=== PATIENT | male | born 1960 | race Caucasian/White ===

== ENCOUNTER 2021-08-02 15:56 | Emergency (ER) | payer OTHER ==
[~2021-08-02] VITALS: Ht 177.8 cm; Wt 77.1 kg
--- NOTE | 2021-08-02 16:00 | NUR ---
BIBAKANKSHA FROM [facility] C/O GEN RASH AND ITCHINESS STARTED X 2 DAYS. THE PATIENT IS IN ROOM AIR AND DENIES SOB. RESPIRATION REGULAR AND UNLABORED. WILL CONTINUE TO MONITOR THE PATIENT.
--- NOTE | 2021-08-02 16:40 | NUR ---
SEEN BY DOUBLE CUT SAWYER CATH AT BEDSIDE.
--- NOTE | 2021-08-02 16:48 | NUR ---
[facility] AT BEDSIDE
[2021-08-02 17:10] LABS: BASOPHILS % (AUTO) 0.3 % (0.0-2.0); EOSINOPHILS % (AUTO) 4.9 % (0.0-6.0); HEMATOCRIT 39 % (39-51); HEMOGLOBIN 12.8 g/dL (13.5-17.5); LYMPHOCYTES # (AUTO) 0.9 K/uL (0.8-4.8); LYMPHOCYTES % (AUTO) 16.5 % (20.0-44.0); MEAN CORPUSCULAR HGB CONC 33 g/dl (31.0-36.0); MEAN CORPUSCULAR VOLUME 95 fL (80-96); MONOCYTES # (AUTO) 0.6 K/uL (0.1-1.30); MONOCYTES % (AUTO) 11.9 % (2.0-12.0); NEUTROPHILS # (AUTO) 3.5 K/uL (1.8-8.9); NEUTROPHILS % (AUTO) 66.4 % (43.0-81.0); PLATELET COUNT (AUTO) 130 K/uL (150-450); RED BLOOD CELL COUNT(AUTO) 4.05 MIL/uL (4.5-6.0); WHITE BLOOD COUNT (AUTO) 5.3 K/uL (4.3-11.0)
[2021-08-02 17:18] LABS: ALBUMIN 3.3 g/dL (3.4-5.0); BILIRUBIN,DIRECT 0.1 mg/dL (0.0-0.2); BILIRUBIN,TOTAL 0.4 mg/dL (0.2-1.0); CALCIUM, SERUM 8.4 mg/dL (8.5-10.1); POTASSIUM 4.1 mmol/L (3.5-5.1); TOTAL PROTEIN, SERUM 6.3 g/dL (6.4-8.2)
--- NOTE | 2021-08-02 17:49 | NUR ---
CALLED DR. 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 MONCADA.
[2021-08-02] MEDS ORDERED: methylPREDNISolone SOD SUCC 125 MG/2ML VIAL IV ONE (18:00)
[2021-08-02] MEDS ORDERED: diphenhydrAMINE HCL 25 MG CAPSULE PO ONE (18:00)
[2021-08-02] MEDS ORDERED: diphenhydrAMINE HCL 50 MG CAPSULE ONE (18:00)
[2021-08-02] MEDS ORDERED: methylPREDNISolone SOD SUCC 125 MG/2ML VIAL ONE (18:00)
[2021-08-02] MEDS ORDERED: EPIN0.3P3 IM (18:07)
[2021-08-02] MEDS ORDERED: PRED20TA PO (18:07)
[2021-08-02] MEDS ORDERED: LORA10TA68 PO (18:07)
--- NOTE | 2021-08-02 19:11 | NUR ---
[facility] ETA 1 HOUR VIA [facility].
--- NOTE | 2021-08-02 20:00 | NUR ---
REPORT GIVEN TO MARISOL MONTALVO [facility]
--- NOTE | 2021-08-02 21:13 | NUR ---
PT D/C TO FACILITY [facility]. REPORT GIVEN TO [facility]
[2021-08-02 22:17] VITALS: BP 111/60
== END 2021-08-02 22:17 | disposition home or self-care (01) ==
LOC: ER 16:02
DX: R21 Rash and other nonspecific skin eruption (principal); M06.9 Rheumatoid arthritis, unspecified; F20.9 Schizophrenia, unspecified; Z86.69 Personal history of other diseases of the nervous system and sense organs; Z88.0 Allergy status to penicillin; Z88.2 Allergy status to sulfonamides
CPT/HCPCS: 36415; 80048; 80076; 85025; 85652; 86592; 86593; 96372; 99283; J2930; Q0163